=== PATIENT | female | born 1985 | race Caucasian/White ===

== ENCOUNTER 2016-05-23 19:10 | Outpatient (CLI) | payer BC, OTHER ==
[~2016-05-23 19:10] MED LIST: LO-DOSE ASPIRIN81 M2 PO; LOVENOX40 MG/0.4 SC; PRENATAL TABLE1 EAC3 PO; VALIUM2 MG PO; ZOFRAN ODT4 MG PO
[2016-05-23 19:28] VITALS: BP 130/67
[2016-05-23] MEDS ORDERED: HEPARIN SO5000 UNITS SC (19:36)
== END 2016-05-23 20:15 | disposition home or self-care (01) ==
LOC: LDRP-OP 19:10 → 2WEST 19:11 → LDRP-OP 07-11 22:27
DX: O47.1 False labor at or after 37 completed weeks of gestation (principal); Z3A.37 37 weeks gestation of pregnancy
CPT/HCPCS: 59025; G0378

== ENCOUNTER 2016-05-25 18:41 | Outpatient (CLI) | payer BC, OTHER ==
[~2016-05-25] VITALS: Ht 157.5 cm; Wt 74.3 kg
[~2016-05-25 18:41] MED LIST changes: +HEPARIN SO5000 UNITS SC
[2016-05-25 19:23] VITALS: BP 118/66
[2016-05-25 20:01] LABS: EOSINOPHIL (%) 0.6 % (0-5); EOSINOPHIL COUNT 0.1 K/uL (0-0.3); HEMATOCRIT 37.3 % (36.0-46.0); IMMATURE GRANULOCYTE (%) 0.8 % (0.0-0.7); IMMATURE GRANULOCYTE COUNT 0.1 K/uL; LYMPHOCYTE COUNT 2.2 K/uL (1.0-2.8); MCH 29.9 PG (29.0-34.0); MCHC 31.9 G/DL (30.0-36.0); MCV 93.7 FL (83-99); MEAN PLAT.VOLUME 11.4 uM^3 (9.5-12.4); MONOCYTE (%) 7.3 % (3-12); MONOCYTE COUNT 0.8 K/uL (0-0.8); NEUTROPHIL COUNT 7.3 K/uL (1.8-6.4); PLATELET COUNT 193 K/uL (156-360); RBC DIS.WIDTH-CV 13.6 % (11.8-14.6); RBC DIS.WIDTH-SD 46.5 % (39-53); RED BLOOD COUNT 3.98 M/uL (3.80-5.20); WHITE BLOOD COUNT 10.4 K/uL (4.1-10.2)
[2016-05-25 20:11] LABS: ANION GAP 11 MEQ/L (2-14); CHLORIDE 103 MEQ/L (99-109); POTASSIUM 3.9 MEQ/L (3.7-5.4); SAMPLE HEMOLYSIS CHECK 0; SAMPLE ICTERIC CHECK 0; SAMPLE LIPEMIA CHECK 0; SODIUM 137 MEQ/L (136-147); TOTAL BILIRUBIN 0.2 MG/DL (0.0-1.0)
[2016-05-25 20:16] LABS: UR CREATININE CONCENTRATION 80.8 MG/DL
[2016-05-25 20:17] LABS: ALKALINE PHOSPHATASE 119 IU/L (3-129); GFR ESTIMATE (CALCULATED) > 59 mL/min/; GLUCOSE 94 mg/dL (70-99); UREA NITROGEN (BUN) 10 mg/dL (9-23)
[2016-05-25 20:20] VITALS: BP 112/64
== END 2016-05-25 21:10 | disposition home or self-care (01) ==
LOC: LDRP-OP 18:41 → 2WEST 18:42 → LDRP-OP 07-11 20:32
PROVIDERS: Advanced Practice Midwife
DX: O26.893 Other specified pregnancy related conditions, third trimester (principal); Z3A.37 37 weeks gestation of pregnancy; R03.0 Elevated blood-pressure reading, without diagnosis of hypertension; R51 Headache; R10.11 Right upper quadrant pain
CPT/HCPCS: 59025; 80053; 82570; 84156; 85025; G0378

== ENCOUNTER 2016-06-03 06:55 | Inpatient (IN) | payer BC, OTHER ==
[~2016-06-03] VITALS: Ht 157.5 cm; Wt 75.4 kg
[2016-06-03] VITALS (23 sets, daily range): BP systolic 109–129; BP diastolic 57–76
[2016-06-03 09:08] LABS: EOSINOPHIL (%) 1.2 % (0-5); EOSINOPHIL COUNT 0.1 K/uL (0-0.3); HEMATOCRIT 38.9 % (36.0-46.0); IMMATURE GRANULOCYTE (%) 1.1 % (0.0-0.7); IMMATURE GRANULOCYTE COUNT 0.1 K/uL; INSTRUMENT ABS NEUTROPHIL CT 6.3 K/uL; LYMPHOCYTE COUNT 1.5 K/uL (1.0-2.8); MCH 30.7 PG (29.0-34.0); MCHC 32.1 G/DL (30.0-36.0); MCV 95.6 FL (83-99); MEAN PLAT.VOLUME 10.9 uM^3 (9.5-12.4); MONOCYTE (%) 8.3 % (3-12); MONOCYTE COUNT 0.7 K/uL (0-0.8); NEUTROPHIL (%) 71.5 % (45-76); NEUTROPHIL COUNT 6.3 K/uL (1.8-6.4); PLATELET COUNT 185 K/uL (156-360); RBC DIS.WIDTH-CV 13.4 % (11.8-14.6); RBC DIS.WIDTH-SD 47.3 % (39-53); RED BLOOD COUNT 4.07 M/uL (3.80-5.20); WHITE BLOOD COUNT 8.9 K/uL (4.1-10.2)
[2016-06-03] MEDS ORDERED: TUMS500 MG PO (09:16)
[2016-06-03] MEDS ORDERED: TYLENOL REGULA325 MG PO (09:16)
[2016-06-04] VITALS (8 sets, daily range): BP systolic 114–125; BP diastolic 50–63
[2016-06-04] MEDS ORDERED: MOTRIN800 MG PO (00:21)
[2016-06-04] MEDS ORDERED: PERCOCET 5/31 TABLET PO (00:21)
[2016-06-05 02:07] VITALS: BP 118/57
[2016-06-05 05:36] LABS: BASOPHIL COUNT 0.1 K/uL (0-0.1); EOSINOPHIL (%) 2.2 % (0-5); EOSINOPHIL COUNT 0.2 K/uL (0-0.3); HEMATOCRIT 37.1 % (36.0-46.0); IMMATURE GRANULOCYTE (%) 0.8 % (0.0-0.7); IMMATURE GRANULOCYTE COUNT 0.1 K/uL; INSTRUMENT ABS NEUTROPHIL CT 6.4 K/uL; LYMPHOCYTE COUNT 2.9 K/uL (1.0-2.8); MCH 30.5 PG (29.0-34.0); MCHC 31.5 G/DL (30.0-36.0); MCV 96.9 FL (83-99); MEAN PLAT.VOLUME 10.9 uM^3 (9.5-12.4); MONOCYTE (%) 5.8 % (3-12); MONOCYTE COUNT 0.6 K/uL (0-0.8); NEUTROPHIL (%) 62.2 % (45-76); NEUTROPHIL COUNT 6.4 K/uL (1.8-6.4); PLATELET COUNT 165 K/uL (156-360); RBC DIS.WIDTH-CV 13.8 % (11.8-14.6); RBC DIS.WIDTH-SD 49.1 % (39-53); RED BLOOD COUNT 3.83 M/uL (3.80-5.20); WHITE BLOOD COUNT 10.2 K/uL (4.1-10.2)
[2016-06-05 07:08] VITALS: BP 115/56
[2016-06-05] MEDS ORDERED: LOVENOX40 MG/0.4 SC (09:18)
[2016-06-05] MEDS ORDERED: IBUPROFEN800 MG PO (09:18)
[2016-06-05] MEDS ORDERED: NORCO 5/3251 TABLET PO (09:19)
== END 2016-06-05 11:07 | disposition home or self-care (01) | DRG 775 ==
LOC: LDRP-OP 06:55 → 2WEST 06:56 → LDRP-OP 10:31 → 2WEST 23:32 → LDRP-OP 07-11 02:47
PROVIDERS: Midwife
PROC: 10907ZC Drainage of Amniotic Fluid, Therapeutic from Products of Conception, Via Natural or Artificial Opening (ICD-10-PCS; principal; 2016-06-03)
PROC: 3E0R3CZ (ICD-10-PCS; principal; 2016-06-03)
PROC: 10E0XZZ Delivery of Products of Conception, External Approach (ICD-10-PCS; principal; 2016-06-03)
PROC: 3E033VJ Introduction of Other Hormone into Peripheral Vein, Percutaneous Approach (ICD-10-PCS; principal; 2016-06-03)
PROC: 00HU33Z Insertion of Infusion Device into Spinal Canal, Percutaneous Approach (ICD-10-PCS; principal; 2016-06-03)
PROC: 0HQ9XZZ Repair Perineum Skin, External Approach (ICD-10-PCS; principal; 2016-06-03)
DX: O99.284 Endocrine, nutritional and metabolic diseases complicating childbirth (principal); E72.12 Methylenetetrahydrofolate reductase deficiency; O13.4 Gestational [pregnancy-induced] hypertension without significant proteinuria, complicating childbirth; O36.5930 Maternal care for other known or suspected poor fetal growth, third trimester, not applicable or unspecified; O99.12 Other diseases of the blood and blood-forming organs and certain disorders involving the immune mechanism complicating childbirth; D68.59 Other primary thrombophilia; O63.0 Prolonged first stage (of labor); O70.0 First degree perineal laceration during delivery; Z37.0 Single live birth; Z3A.39 39 weeks gestation of pregnancy
CPT/HCPCS: 85025; C1755; J1650; J2405; J3010; J7120